=== PATIENT | female | born 1960 ===

== ENCOUNTER 2022-12-21 00:49 | Day surgery (SDC) | payer BC ==
[~2022-12-21] VITALS: Wt 102.0 kg
[~2022-12-21 00:49] MED LIST: ASPIR 8181 M1 PO; ATOR20 PO; CALCIUM 600 +1 EA11 PO; FEOSOL BIFERA 228 MG PO; FOLI1 PO; FURO20 PO; GABA300 PO; HAIR, SKIN AND1 EAC3 PO; HUMALOG KW100 UNIT/1; HUMALOG KW200 UNIT/2 SC; JARDIANCE25 MG PO; Lisinopril2.5 MG PO; Loratadine10 MG PO; OMEP20ER PO; SYNTHROID150 MC2 PO; TOUJEO SOL300 UNIT/2 SC; VITAMIN C500 M3 PO; VITAMIN D325 MC3 PO
[2022-12-21 09:29] VITALS: BP 113/83
[2022-12-21 11:59] VITALS: BP 113/93
== END 2022-12-21 12:58 | disposition home or self-care (01) ==
LOC: ATC 00:49
DX: M05.9 Rheumatoid arthritis with rheumatoid factor, unspecified (principal); L88 Pyoderma gangrenosum
CPT/HCPCS: J7050; Q5103

== ENCOUNTER 2023-02-15 01:38 | Day surgery (SDC) | payer BC ==
[2023-02-15 07:54] VITALS: BP 110/74
== END 2023-02-15 10:31 | disposition home or self-care (01) ==
LOC: ATC 01:38
DX: M05.9 Rheumatoid arthritis with rheumatoid factor, unspecified (principal); L88 Pyoderma gangrenosum; M17.0 Bilateral primary osteoarthritis of knee; Z88.2 Allergy status to sulfonamides; Z88.1 Allergy status to other antibiotic agents; Z91.041 Radiographic dye allergy status
CPT/HCPCS: 96413; 96415; J7050; Q5103

== ENCOUNTER 2023-04-12 02:38 | Day surgery (SDC) | payer BC ==
[2023-04-12 08:28] VITALS: BP 102/71
== END 2023-04-12 11:06 | disposition home or self-care (01) ==
LOC: ATC 02:38
DX: M05.9 Rheumatoid arthritis with rheumatoid factor, unspecified (principal); L88 Pyoderma gangrenosum; M17.0 Bilateral primary osteoarthritis of knee; Z88.1 Allergy status to other antibiotic agents; Z91.041 Radiographic dye allergy status; Z88.2 Allergy status to sulfonamides
CPT/HCPCS: 96413; 96415; J7050; Q5103

== ENCOUNTER 2023-06-07 03:01 | Day surgery (SDC) | payer BC ==
[2023-06-07 09:35] VITALS: BP 113/65
[2023-06-07 10:11] LABS: BASOPHILS ABSOLUTE AUTO 0.04 K/mm3 (0.00-0.23); BASOPHILS PERCENT AUTO 1 % (0-2); EOSINOPHILS ABSOLUTE AUTO 0.23 K/mm3 (0.00-0.68); EOSINOPHILS PERCENT AUTO 4 % (0-6); Hematocrit 46.4 % (33.0-51.0); Hemoglobin 15.3 g/dL (11.5-16.0); IMMATURE GRAN ABSOLUTE AUTO 0.02 K/mm3 (0.00-0.10); IMMATURE GRAN PERCENT AUTO 0 % (0-1); LYMPHOCYTES ABSOLUTE AUTO 1.57 K/mm3 (0.84-5.20); LYMPHOCYTES PERCENT AUTO 27 % (21-46); MONOCYTES ABSOLUTE AUTO 0.51 K/mm3 (0.16-1.47); MONOCYTES PERCENT AUTO 9 % (4-13); Mean Corpuscular HGB 32.2 pg (26.0-34.0); Mean Corpuscular Volume 98 fL (80-100); Mean Platelet Volume 11.5 fL (9.1-12.4); NEUTROPHILS PERCENT AUTO 60 % (41-73); Platelet Count 169 K/mm3 (150-400); RDW Coefficient Variation 13.1 % (11.7-14.2); RDW Standard Deviation 46.8 fL (35.1-46.3); Red Blood Cell Count 4.75 M/mm3 (3.80-5.20); White Blood Cell Count 5.87 K/mm3 (4.00-11.30)
[2023-06-07 10:42] LABS: Alanine Aminotransfer (ALT/SGP 56 U/L (12-78); Albumin, Blood 3.6 g/dL (3.4-5.0); Albumin/Globulin Ratio 1.1 (0.8-1.8); Alk Phos 76 U/L (50-136); Anion Gap 5 mmol/L (6-16); Aspartate Aminotrans (AST/SGOT 35 U/L (12-37); Bilirubin, Total 0.3 mg/dL (0.1-1.0); Blood Urea Nitrogen 18 mg/dL (8-24); C-REACTIVE PROTEIN, EXT RANGE <0.290 mg/dL (0.000-0.300); CO2, Blood 28 mmol/L (21-32); Calcium, Blood 9.9 mg/dL (8.5-10.1); Chloride, Blood 108 mmol/L (98-108); Creatinine, Blood 0.72 mg/dL (0.40-1.00); Globulin, Blood 3.4 g/dL (2.2-4.0); Glomerular Filtration Rate 93 (60-); Glucose, Blood 141 mg/dL (70-99); Potassium, Blood 4.2 mmol/L (3.5-5.5); Sodium, Blood 141 mmol/L (136-145)
== END 2023-06-07 12:20 | disposition home or self-care (01) ==
LOC: ATC 03:01
PROVIDERS: Internal Medicine
DX: M05.9 Rheumatoid arthritis with rheumatoid factor, unspecified (principal); L88 Pyoderma gangrenosum; K76.0 Fatty (change of) liver, not elsewhere classified; E11.42 Type 2 diabetes mellitus with diabetic polyneuropathy; Z79.899 Other long term (current) drug therapy; Z88.2 Allergy status to sulfonamides; Z79.82 Long term (current) use of aspirin
CPT/HCPCS: 80053; 85025; 85651; 86140; 96413; 96415; J7050; Q5103

== ENCOUNTER 2023-08-03 02:42 | Day surgery (SDC) | payer BC ==
[2023-08-03 14:00] VITALS: BP 131/83
== END 2023-08-03 16:48 | disposition home or self-care (01) ==
LOC: ATC 02:42
DX: M05.9 Rheumatoid arthritis with rheumatoid factor, unspecified (principal); L88 Pyoderma gangrenosum; G89.29 Other chronic pain; M54.50 Low back pain, unspecified; K76.0 Fatty (change of) liver, not elsewhere classified; E11.42 Type 2 diabetes mellitus with diabetic polyneuropathy; Z88.2 Allergy status to sulfonamides; Z88.5 Allergy status to narcotic agent; Z88.8 Allergy status to other drugs, medicaments and biological substances; Z79.84 Long term (current) use of oral hypoglycemic drugs; Z79.899 Other long term (current) drug therapy
CPT/HCPCS: 96413; 96415; J7050; Q5103

== ENCOUNTER 2023-10-26 08:37 | Day surgery (SDC) | payer BC ==
[~2023-10-26] VITALS: Ht 165.1 cm; Wt 108.8 kg
[~2023-10-26 08:37] MED LIST changes: +ALLEGRA ALLERG180 MG PO; +Balanced Salt Epinephrine Irrigation Solution 500 mL IR SCH; +Lidocaine HCl/Pf 1% 5 ML VIAL XX SCH; +METF500 PO; +METO100ER PO; +Moxifloxacin HCL 0.5 MG/0.1 ML 0.4MLSYR LEFTEYE SCH; +NS 500 ML IV ONE; +PHENYLEPHRINE\\TROPICAMIDE\\TETRACAINE OPHTHALMIC DILATING SOLN LEFTEYE PRN; +POTA10T PO; +Povidone-Iodine 450 DROP/30 ML Solution LEFTEYE SCH; +Povidone-Iodine 450 DROP/30 ML Solution ONE; +RENFLEXIS100 M1; +TOUJEO MAX300 UNIT/2; +TRULICITY3 MG/0.5 M
[2023-10-26] MEDS ORDERED: INFLECTRA100 MG IV (09:17)
[2023-10-26] MEDS ORDERED: Prednisone10 MG PO (09:18)
[2023-10-26] MEDS ORDERED: NS 500 ML IV ONE (09:22)
--- NOTE | 2023-10-26 09:28 | NUR ---
10/26/23 0928 Nicole Bateman PATIENT REPORTS NO ISSUES WITH BETADINE FOR LAST EYE LAST WEEK DESPITE ANAPHYLACTIC REACTION TO IODINE. 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
[2023-10-26] MEDS ORDERED: FentaNYL Citrate 50 MCG/ML 2 ML Injection ONE (09:35)
[2023-10-26] MEDS ORDERED: Midazolam HCl 1MG / ML 2ML Vial ONE ×2 (09:35→09:59)
[2023-10-26] MEDS ORDERED: Tetracaine HCl 0.5% Opth Soln 15 ml LEFTEYE ONE (09:49)
[2023-10-26 10:34] VITALS: BP 132/80
== END 2023-10-26 10:24 | disposition home or self-care (01) ==
LOC: ORSCSDS 08:37
PROVIDERS: Student in an Organized Health Care Education/Training Program
PROC: 08RK3JZ Replacement of Left Lens with Synthetic Substitute, Percutaneous Approach (ICD-10-PCS; principal; 2023-10-26 10:00)
DX: E11.36 Type 2 diabetes mellitus with diabetic cataract (principal); H25.12 Age-related nuclear cataract, left eye; Z96.1 Presence of intraocular lens; I10 Essential (primary) hypertension; M06.9 Rheumatoid arthritis, unspecified; Z79.84 Long term (current) use of oral hypoglycemic drugs; Z79.85 Long-term (current) use of injectable non-insulin antidiabetic drugs; Z79.899 Other long term (current) drug therapy
CPT/HCPCS: 82947; J2250; J3010; J7040; V2632

== ENCOUNTER 2024-05-30 00:34 | Day surgery (SDC) | payer MEDICARE ==
[~2024-05-30] VITALS: Wt 99.2 kg
[~2024-05-30 00:34] MED LIST changes: -Balanced Salt Epinephrine Irrigation Solution 500 mL IR SCH; +INFLECTRA100 MG IV; -Lidocaine HCl/Pf 1% 5 ML VIAL XX SCH; -Moxifloxacin HCL 0.5 MG/0.1 ML 0.4MLSYR LEFTEYE SCH; -NS 500 ML IV ONE; +OZEMPIC0.25 MG/02 SQ; -PHENYLEPHRINE\\TROPICAMIDE\\TETRACAINE OPHTHALMIC DILATING SOLN LEFTEYE PRN; -Povidone-Iodine 450 DROP/30 ML Solution LEFTEYE SCH; -Povidone-Iodine 450 DROP/30 ML Solution ONE; +Prednisone10 MG PO
[2024-05-30 15:00] VITALS: BP 102/63
[2024-05-30] MEDS ORDERED: INFLIXIMAB ABDA IV SCH (15:25)
[2024-05-30] MEDS ORDERED: NS IV SCH (15:25)
== END 2024-05-30 17:54 | disposition home or self-care (01) ==
LOC: ATC 00:34
DX: M05.9 Rheumatoid arthritis with rheumatoid factor, unspecified (principal); L88 Pyoderma gangrenosum; Z88.1 Allergy status to other antibiotic agents; Z79.82 Long term (current) use of aspirin; Z79.899 Other long term (current) drug therapy
CPT/HCPCS: 96413; 96415; J7050; Q5104

== ENCOUNTER 2024-07-25 05:50 | Day surgery (SDC) | payer MEDICARE ==
[~2024-07-25] VITALS: Wt 95.1 kg
[2024-07-25 13:55] VITALS: BP 105/66
[2024-07-25] MEDS ORDERED: Infliximab-DYYB 700 MG in NS 250 ML IV SCH (13:55)
== END 2024-07-25 16:37 | disposition home or self-care (01) ==
LOC: ATC 05:50
DX: M05.9 Rheumatoid arthritis with rheumatoid factor, unspecified (principal); L88 Pyoderma gangrenosum; D84.81 Immunodeficiency due to conditions classified elsewhere; E11.42 Type 2 diabetes mellitus with diabetic polyneuropathy; Z79.4 Long term (current) use of insulin; Z79.84 Long term (current) use of oral hypoglycemic drugs; Z79.899 Other long term (current) drug therapy; Z88.2 Allergy status to sulfonamides; Z88.1 Allergy status to other antibiotic agents; Z88.8 Allergy status to other drugs, medicaments and biological substances; Z91.041 Radiographic dye allergy status
CPT/HCPCS: 96413; 96415; J7050; Q5103

== ENCOUNTER → 2024-08-15 | Outpatient (CLI) | payer MEDICARE ==
[2024-08-16 00:04] LABS: Free Thyroxine 1.4 ng/dL (0.70-1.60); Thyroid Stimulating Hormone 1.3 uIU/mL (0.360-4.800)
== END | disposition home or self-care (01) ==
LOC: LAB SHORT 17:31 → LAB 17:31
PROVIDERS: Hospitalist
DX: E03.9 Hypothyroidism, unspecified (principal)
CPT/HCPCS: 84439; 84443

== ENCOUNTER 2024-09-19 01:58 | Day surgery (SDC) | payer MEDICARE ==
[~2024-09-19] VITALS: Wt 97.5 kg
[2024-09-19 14:05] VITALS: BP 117/81
[2024-09-19] MEDS ORDERED: Infliximab-DYYB 700 MG in NS 250 ML IV SCH (14:20)
== END 2024-09-19 16:53 | disposition home or self-care (01) ==
LOC: ATC 01:58
DX: M05.9 Rheumatoid arthritis with rheumatoid factor, unspecified (principal); L88 Pyoderma gangrenosum; D84.81 Immunodeficiency due to conditions classified elsewhere; Z79.899 Other long term (current) drug therapy; Z88.2 Allergy status to sulfonamides; Z88.1 Allergy status to other antibiotic agents; Z91.041 Radiographic dye allergy status
CPT/HCPCS: 96413; 96415; J7050; Q5103

== ENCOUNTER 2024-11-16 03:58 | Day surgery (SDC) | payer MEDICARE ==
[~2024-11-16] VITALS: Wt 99.9 kg
[2024-11-16 14:02] VITALS: BP 126/82
[2024-11-16] MEDS ORDERED: Infliximab-DYYB 700 MG in NS 250 ML IV SCH (14:25)
== END 2024-11-16 16:55 | disposition home or self-care (01) ==
LOC: ATC 03:58
DX: L88 Pyoderma gangrenosum (principal); M05.9 Rheumatoid arthritis with rheumatoid factor, unspecified; E11.40 Type 2 diabetes mellitus with diabetic neuropathy, unspecified; Z79.84 Long term (current) use of oral hypoglycemic drugs; Z88.2 Allergy status to sulfonamides; Z88.5 Allergy status to narcotic agent; Z88.8 Allergy status to other drugs, medicaments and biological substances; Z79.82 Long term (current) use of aspirin
CPT/HCPCS: 96413; 96415; J7050; Q5103

== ENCOUNTER 2025-01-11 01:55 | Day surgery (SDC) | payer MEDICARE ==
[2025-01-11 14:05] VITALS: BP 126/78
[2025-01-11] MEDS ORDERED: Infliximab-DYYB 700 MG in NS 250 ML IV SCH (14:20)
== END 2025-01-11 16:46 | disposition home or self-care (01) ==
LOC: ATC 01:55
DX: M05.9 Rheumatoid arthritis with rheumatoid factor, unspecified (principal); L88 Pyoderma gangrenosum; Z88.8 Allergy status to other drugs, medicaments and biological substances; Z88.2 Allergy status to sulfonamides; Z91.041 Radiographic dye allergy status; Z79.82 Long term (current) use of aspirin; Z79.4 Long term (current) use of insulin; Z79.899 Other long term (current) drug therapy; Z79.890 Hormone replacement therapy
CPT/HCPCS: 96413; 96415; J7050; Q5103

== ENCOUNTER → 2025-02-18 | Outpatient (CLI) | payer BC ==
[2025-02-18 17:14] LABS: Anion Gap 9 mmol/L (3-11); Blood Urea Nitrogen 22 mg/dL (8-24); CHOL/HDL RATIO 3.3; CO2, Blood 25 mmol/L (21-32); Calcium, Blood 8.9 mg/dL (8.5-10.1); Chloride, Blood 103 mmol/L (98-108); Cholesterol 112 mg/dL (50-200); Creatinine, Blood 0.89 mg/dL (0.40-1.00); Glucose, Blood 400 mg/dL (70-99); HDL Cholesterol 34 mg/dL (>39); LDL/HDL RATIO 0.2; Low Density Lipoprotein Chol 8 mg/dL (0-110); Potassium, Blood 4.6 mmol/L (3.5-5.5); Sodium, Blood 132 mmol/L (136-145); Triglycerides 350 mg/dL (30-160); Very Low Density Lipoprot Chol 70 mg/dL (6-32)
== END | disposition home or self-care (01) ==
LOC: LAB 07:50 → LAB SHORT 07:50
PROVIDERS: Hospitalist
DX: E11.42 Type 2 diabetes mellitus with diabetic polyneuropathy (principal)
CPT/HCPCS: 80048; 80061; 83036

== ENCOUNTER → 2025-02-20 | Outpatient (CLI) | payer MEDICARE ==
[2025-02-20 20:27] LABS: Creatinine, Urine Random 33.30 mg/dL (27.00-270.00); Microalb/Creat Ratio UR, Rand Unable to Calculate mg/g (0.000-30.000); Microalbumin, Random Urine <5.000 mg/L (0.000-20.000)
== END ==
LOC: LAB SHORT 17:41 → LAB 17:41
PROVIDERS: Hospitalist
DX: E11.42 Type 2 diabetes mellitus with diabetic polyneuropathy (principal)
CPT/HCPCS: 82043; 82570

== ENCOUNTER 2025-03-08 03:43 | Day surgery (SDC) | payer MEDICARE ==
[~2025-03-08] VITALS: Wt 96.6 kg
[~2025-03-08 03:43] MED LIST changes: +Infliximab-DYYB 700 MG in NS 250 ML IV SCH
[2025-03-08 14:38] VITALS: BP 106/83
[2025-03-08] MEDS ORDERED: METHOTREXATE2.510 PO (14:40)
== END 2025-03-08 17:30 | disposition home or self-care (01) ==
LOC: ATC 03:43
DX: L88 Pyoderma gangrenosum (principal); M05.9 Rheumatoid arthritis with rheumatoid factor, unspecified; D84.81 Immunodeficiency due to conditions classified elsewhere; Z79.82 Long term (current) use of aspirin; Z79.899 Other long term (current) drug therapy; Z88.1 Allergy status to other antibiotic agents; Z88.2 Allergy status to sulfonamides; Z88.8 Allergy status to other drugs, medicaments and biological substances; Z91.041 Radiographic dye allergy status
CPT/HCPCS: 96413; 96415; J7050; Q5103